=== PATIENT | female | born 1935 | race Caucasian/White ===

== ENCOUNTER 2018-04-04 08:33 | Emergency (ER) | payer MEDICARE, BC ==
[~2018-04-04] VITALS: Ht 167.6 cm; Wt 81.6 kg
--- NOTE | 2018-04-04 08:58 | EKG ---
[address] [address] Test Date: 2018-04-04 Test Time: 08:39:59 Pat Name: MANISHA AGUAYO Department: Room: Gender: F [employer]: [place] : 1935 Requested By: CAROL QUILES Order Number: [id number] Reading MD: Measurements Intervals [place] Rate: 70 P: -14 PA: 190 QRS: -17 QRSD: 82 T: 35 QT: 406 QTc: 441 Interpretive Statements SINUS RHYTHM LEFTWARD AXIS NO SPECIFIC ECG ABNORMALITIES RI6.01 No previous ECG available for comparison
[2018-04-04 09:04] LABS: BASO % 1 % (0-3); EOS # 0.1 x10^3/uL (0.0-0.7); EOS % 2 % (0-3); HEMATOCRIT 41.9 % (36.0-47.0); HEMOGLOBIN 14.1 g/dL (12.0-15.5); LYMPH # 2.1 x10^3/uL (1.0-4.8); LYMPH % 37 % (24-48); MEAN CORPUSCULAR HEMOGLOBIN 29 pg (25-35); MEAN CORPUSCULAR HGB CONC 34 g/dL (31-37); MEAN CORPUSCULAR VOLUME 85 fL (79-100); MONO # 0.3 x10^3/uL (0.0-1.1); MONO % 6 % (0-9); NEUT # 3.2 x10^3uL (1.8-7.7); NEUT % 54 % (31-73); PLATELET COUNT 235 x10^3/uL (140-400); RED BLOOD COUNT 4.93 x10^6/uL (3.50-5.40); RED CELL DISTRIBUTION WIDTH 15.7 % (11.5-14.5); WHITE BLOOD COUNT 5.8 x10^3/uL (4.0-11.0)
--- NOTE | 2018-04-04 09:09 | PHYS DOC ---
Adult General Chief Complaint Chief Complaint: CHEST PAIN HPI HPI 82-year-old female presents with left-sided chest pain. She states that she woke up around 5 AM with a left chest pain that she describes as sharp. It was a fairly localized area. She was able to fall back asleep. When she woke up later the pain returned to the area and lasted. It was again sharp in nature. She had some pain radiating up into her neck, but that is resolved. At this time , the patient is pain-free. She denies shortness of breath or diaphoresis with these episodes. Denies nausea or vomiting. She took one full strength aspirin prior to coming to the ED. She has not had anything like this before. She takes lisinopril for hypertension. Her blood pressure was 190s over 100 this morning before she took her lisinopril. She did take her medication today. She has been on a stable dose of 20 mg for several years. One year ago, the patient was diagnosed with H. pylori and severe gastritis. She did appropriate treatment. She denies frequent GERD at this time. No fever or chills. She had a stress test , but that was many years ago. It was negative at that time. Review of Systems Review of Systems Constitutional: Denies fever or chills [] Eyes: Denies change in visual acuity, redness, or eye pain [] HENT: Denies nasal congestion or sore throat [] Respiratory: Denies cough or shortness of breath [] Cardiovascular: No additional information not addressed in HPI [] GI: Denies abdominal pain, nausea, vomiting, bloody stools or diarrhea [] : Denies dysuria or hematuria [] Musculoskeletal: Denies back pain or joint pain [] Integument: Denies rash or skin lesions [] Neurologic: Denies headache, focal weakness or sensory changes [] Endocrine: Denies polyuria or polydipsia [] All other systems were reviewed and found to be within normal limits, except as documented in this note. Allergies Allergies Allergies Coded Allergies Type Severity Reaction Last Updated Verified No Known Drug Allergies 04/04/18 No Physical Exam Physical Exam Constitutional: Well developed, well nourished, no acute distress, non-toxic appearance. [] HENT: Normocephalic, atraumatic, bilateral external ears normal, oropharynx moist, no oral exudates, nose normal. [] Eyes: PERRLA, EOMI, conjunctiva normal, no discharge. [] Neck: Normal range of motion, no tenderness, supple, no stridor. [] Cardiovascular:Heart rate regular rhythm, no murmur [] Lungs & Thorax: Bilateral breath sounds clear to auscultation [] Abdomen: Bowel sounds normal, soft, no tenderness, no masses, no pulsatile masses. [] Skin: Warm, dry, no erythema, no rash. [] Back: No tenderness, no CVA tenderness. [] Extremities: Well-healed surgical scar over the left knee. [] Neurologic: Alert and oriented X 3, normal motor function, normal sensory function, no focal deficits noted. [] Psychologic: Affect normal, judgement normal, mood normal. [] Current Patient Data Lab Results Laboratory Tests Test 04/04/18 08:50 White Blood Count 5.8 x10^3/uL (4.0-11.0) Red Blood Count 4.93 x10^6/uL (3.50-5.40) Hemoglobin 14.1 g/dL (12.0-15.5) Hematocrit 41.9 % (36.0-47.0) Mean Corpuscular Volume 85 fL (79-100) Mean Corpuscular Hemoglobin 29 pg (25-35) Mean Corpuscular Hemoglobin Concent 34 g/dL (31-37) Red Cell Distribution Width 15.7 % (11.5-14.5) H Platelet Count 235 x10^3/uL (140-400) Neutrophils (%) (Auto) 54 % (31-73) Lymphocytes (%) (Auto) 37 % (24-48) Monocytes (%) (Auto) 6 % (0-9) Eosinophils (%) (Auto) 2 % (0-3) Basophils (%) (Auto) 1 % (0-3) Neutrophils # (Auto) 3.2 x10^3uL (1.8-7.7) Lymphocytes # (Auto) 2.1 x10^3/uL (1.0-4.8) Monocytes # (Auto) 0.3 x10^3/uL (0.0-1.1) Eosinophils # (Auto) 0.1 x10^3/uL (0.0-0.7) Basophils # (Auto) 0.0 x10^3/uL (0.0-0.2) EKG EKG Normal sinus rhythm, rate 70, slight left axis, no ST elevations or depressions. [] Radiology/Procedures Radiology/Procedures EXAM: CHEST 1 VIEW History: Chest discomfort COMPARISON: None available. TECHNIQUE: Single portable radiograph of the chest FINDINGS: The cardiac silhouette is unremarkable. The lungs are clear bilaterally. The costophrenic sulci are clear and well demarcated. IMPRESSION: No radiographic evidence of an acute cardiopulmonary process. Electronically signed by: Peng Degroot MD (04/04/2018 9:25 AM) [facility][] Course & Med Decision Making Course & Med Decision Making Pertinent Labs and Imaging studies reviewed. (See chart for details) The patient's chest x-ray is unremarkable. Her lab work is unremarkable. Troponin is negative. Her EKG is unremarkable. I discussed with the patient the option of observation admission for further troponin trending. Her pain is gone at this time. She would prefer to return home. If her symptoms return she will come back to the emergency room. [] Dragon Disclaimer Dragon Disclaimer This electronic medical record was generated, in whole or in part, using a voice recognition dictation system. Departure Departure: Referrals: BAY HEIN MD (PCP) CAROL QUILES DO April 04, 2018 09:09
[2018-04-04 09:20] LABS: ALBUMIN 3.8 g/dL (3.4-5.0); ALBUMIN/GLOBULIN RATIO 1.1 (1.0-1.7); CALCIUM 9.2 mg/dL (8.5-10.1); CREATININE 0.6 mg/dL (0.6-1.0); GFR 96.2; TOTAL BILIRUBIN 0.6 mg/dL (0.2-1.0); TOTAL PROTEIN 7.2 g/dL (6.4-8.2)
--- NOTE | 2018-04-04 09:28 | RAD ---
EXAM: CHEST 1 VIEW History: Chest discomfort COMPARISON: None available. TECHNIQUE: Single portable radiograph of the chest FINDINGS: The cardiac silhouette is unremarkable. The lungs are clear bilaterally. The costophrenic sulci are clear and well demarcated. IMPRESSION: No radiographic evidence of an acute cardiopulmonary process. Electronically signed by: Peng Degroot MD (04/04/2018 9:25 AM) [facility]
[2018-04-04 10:44] VITALS: BP 106/66
== END 2018-04-04 10:00 | disposition home or self-care (01) ==
LOC: ER 08:33
DX: R07.89 Other chest pain (principal); I10 Essential (primary) hypertension
CPT/HCPCS: 36415; 71045; 80053; 83880; 84484; 85025; 93005; 99285-25

== ENCOUNTER → 2020-01-22 | Outpatient (CLI) | payer MEDICARE, BC ==
[2020-01-22 11:56] LABS: BASO # 0.1 x10^3/uL (0.0-0.2); BASO % 1 % (0-3); EOS # 0.2 x10^3/uL (0.0-0.7); EOS % 2 % (0-3); HEMATOCRIT 43.7 % (36.0-47.0); HEMOGLOBIN 14.7 g/dL (12.0-15.5); LYMPH # 2.3 x10^3/uL (1.0-4.8); LYMPH % 35 % (24-48); MEAN CORPUSCULAR HEMOGLOBIN 30 pg (25-35); MEAN CORPUSCULAR HGB CONC 34 g/dL (31-37); MEAN CORPUSCULAR VOLUME 89 fL (79-100); MONO # 0.4 x10^3/uL (0.0-1.1); MONO % 7 % (0-9); NEUT # 3.6 x10^3uL (1.8-7.7); NEUT % 55 % (31-73); PLATELET COUNT 282 x10^3/uL (140-400); RED CELL DISTRIBUTION WIDTH 14.4 % (11.5-14.5); WHITE BLOOD COUNT 6.5 x10^3/uL (4.0-11.0)
[2020-01-22 11:58] LABS: ALBUMIN 3.7 g/dL (3.4-5.0); CALCIUM 9.5 mg/dL (8.5-10.1); CREATININE 0.7 mg/dL (0.6-1.0); GFR 80.1; POTASSIUM 3.9 mmol/L (3.5-5.1); TOTAL BILIRUBIN 0.8 mg/dL (0.2-1.0); TOTAL PROTEIN 7.5 g/dL (6.4-8.2)
== END | disposition home or self-care (01) ==
LOC: LAB 10:42
PROVIDERS: ATTEND Physician Assistant
DX: Z13.818 Encounter for screening for other digestive system disorders (principal); I10 Essential (primary) hypertension
CPT/HCPCS: 36415; 80053; 80061; 85025; 86803

== ENCOUNTER → 2022-03-30 | Outpatient (CLI) | payer MEDICARE, BC ==
--- NOTE | 2022-03-30 13:09 | RAD ---
XR EXAM OF ANKLE 3V History: Reason: BILATERAL ANKLE PAIN / Spl. Instructions: / History: Technique: 3 views bilateral ankles. Comparison: None. Findings: Right ankle: Symmetric ankle mortise. No fracture. Small plantar calcaneal spur. Dorsal calcaneal ent hesophytes. Left ankle: Symmetric ankle mortise. No acute fracture. Dorsal calcaneal enthesophytes. Impression: 1. No acute osseous abnormality. Electronically signed by: Basil Brush DO (03/30/2022 1:06 PM) [id number]
== END ==
LOC: RAD 09:12
PROVIDERS: ATTEND Podiatrist
DX: M77.32 Calcaneal spur, left foot (principal); M77.31 Calcaneal spur, right foot
CPT/HCPCS: 73610-50